=== PATIENT | female | born 1995 | race Caucasian/White ===

== ENCOUNTER 2018-11-27 10:11 | Outpatient (REF) | payer BC, SELFPAY ==
[2018-11-29 11:36] LABS: HBs Antibody, Quant 16.6 mIU/mL; Hepatitis B Surface Ab Positive
== END 2018-11-27 10:31 ==
LOC: NCHCN 10:11
PROVIDERS: PCP Specialist/Technologist Athletic Trainer; Visit Provider Specialist/Technologist Athletic Trainer
DX: Z11.59 Encounter for screening for other viral diseases (principal); Z71.89 Other specified counseling
CPT/HCPCS: 86706